=== PATIENT | male | born 1960 | race Caucasian/White ===

== ENCOUNTER 2023-01-25 16:20 | Emergency (ER) | payer MEDICAID ==
[~2023-01-25] VITALS: Ht 172.7 cm; Wt 93.2 kg
[2023-01-25] MEDS ORDERED: ROSU10TA72 PO (16:33)
[2023-01-25] MEDS ORDERED: CHOL25TA4 PO (16:33)
[2023-01-25] MEDS ORDERED: ASPI-1450 PO (16:33)
[2023-01-25] MEDS ORDERED: IRBE150T51 PO (16:33)
[2023-01-25] MEDS ORDERED: AMLO-257 PO (16:33)
[2023-01-25] MEDS ORDERED: FERR325T23 PO (16:33)
[2023-01-25] MEDS ORDERED: ATEN-72 PO (16:33)
[2023-01-25 18:09] LABS: APPEARANCE,URINE HAZY (CLEAR); BILIRUBIN,URINE NEGATIVE (NEGATIVE); GLUCOSE, URINE (UA) NEGATIVE (NEGATIVE); KETONES,URINE NEGATIVE (NEGATIVE); LEUKOCYTE ESTERASE ,URINE SMALL (NEGATIVE); NITRATE,URINE NEGATIVE (NEGATIVE); OCCULT BLOOD,URINE NEGATIVE (NEGATIVE); PH,URINE 5.5 (5.0-8.0); PROTEIN,URINE 30-70 mg/dL (NEGATIVE); SPECIFIC GRAVITIY, URINE 1.034 (1.003-1.030)
[2023-01-25 18:16] LABS: HEMATOCRIT 38.6 % (41-53); HEMOGLOBIN 13.1 g/dL (13.5-17.5); MEAN CORPUSCULAR VOLUME 94 fL (80-100); PLATELET COUNT (AUTO) 102 K/uL (150-450); RED CELL DISTRIBUTION WIDTH 14.2 % (11.5-14.5)
[2023-01-25 18:20] LABS: BACTERIA,URINE None Seen /HPF (None Seen); CALCIUM OXALATE CRYSTALS,UR Many /LPF (None Seen); RBC,URINE None Seen /HPF (0-2); SQUAMOUS EPITHELIAL CELL,UR Few /LPF (None Seen)
[2023-01-25 18:29] LABS: ANION GAP 4 mmol/L (8-16); CALCIUM, TOTAL 8.9 mg/dL (8.8-10.5); CARBON DIOXIDE 32 mmol/L (22-29); CHLORIDE 103 mmol/L (98-107); CREATININE 0.87 mg/dL (0.60-1.30); GLOMERULAR FILTR. RATE CALC > 60 mL/min (>60); GLUCOSE,RANDOM 93 mg/dL (70-110); POTASSIUM 4.2 mmol/L (3.5-5.1); SODIUM SERUM 139 mmol/L (136-145)
[2023-01-25 18:33] LABS: BAND NEUTROPHILS % (MANUAL) 8 % (0-5); EOSINOPHILS % (MANUAL) 1 % (1-6); LYMPHOCYTES % (MANUAL) 6 % (22-44); SEGMENTED NEUTROPHILS % 85 % (40-70)
[2023-01-25 18:35] LABS: ALANINE AMINOTRANSFERASE 17 U/L (12-78); ALBUMIN 3.7 g/dL (3.4-5.0); ALKALINE PHOSPHATASE 61 U/L (46-116); ASPARTATE AMINOTRANSFERASE 19 U/L (15-37); BILIRUBIN,TOTAL 0.6 mg/dL (0.1-1.0); LIPASE 155 U/L (73-393)
[2023-01-25 18:37] LABS: LACTIC ACID 0.8 mmol/L (0.4-2.0)
[2023-01-25] MEDS ORDERED: LIDOCAINE 5% TRANSDERMAL PATCH TD ONE (19:45)
[2023-01-25 20:00] VITALS: BP 110/71
== END 2023-01-25 20:58 | disposition still patient (30) ==
LOC: EMS 16:32
DX: M79.621 Pain in right upper arm (principal); E78.00 Pure hypercholesterolemia, unspecified; I10 Essential (primary) hypertension
CPT/HCPCS: 71045; 80053; 81001; 83605; 83690; 83880; 84484; 85025; 93005; 99285; 36415-L1; 36415-TC

== ENCOUNTER 2024-09-29 08:14 | Emergency (ER) | payer MEDICARE, MEDICAID ==
[~2024-09-29] VITALS: Ht 172.7 cm; Wt 101.0 kg
[~2024-09-29 08:14] MED LIST: AMLO-257 PO; ASPI-1450 PO; ATEN-72 PO; CEPH-558 PO; CHOL25TA4 PO; CLOP75TA32 PO; FERR325T23 PO; FURO40TA5 PO; IRBE150T51 PO; ROSU10TA72 PO; TAMS0.4C94 PO
[2024-09-29 08:45] VITALS: TEMP 98.5
[2024-09-29] MEDS: LIDOCAINE 1% 10 ML VIAL SQ ONE (09:34)
[2024-09-29] MEDS ORDERED: DOXY-354 PO (09:58)
[2024-09-29] MEDS ORDERED: IBUP-1554 PO (09:58)
[2024-09-29] MEDS ORDERED: CEPH-558 PO (09:58)
[2024-09-29 10:17] VITALS: BP 115/72; PULSE 68; RESP 18; O2SAT 99
== END 2024-09-29 10:19 | disposition home or self-care (01) ==
LOC: EMS 08:15
DX: L02.32 Furuncle of buttock (principal); E78.00 Pure hypercholesterolemia, unspecified; I10 Essential (primary) hypertension; Z79.02 Long term (current) use of antithrombotics/antiplatelets; Z79.82 Long term (current) use of aspirin; Z79.899 Other long term (current) drug therapy
CPT/HCPCS: 99284; 10160; J3490

== ENCOUNTER 2025-05-26 12:08 | Inpatient (IN) | payer MEDICARE, MEDICAID ==
[~2025-05-26] VITALS: Ht 172.7 cm; Wt 94.5 kg
[~2025-05-26 12:08] MED LIST changes: +DOXY-354 PO; +IBUP-1554 PO; -ROSU10TA72 PO; +ROSU10TA98 PO
[2025-05-26] MEDS ORDERED: ATOR10TA PO (12:32)
[2025-05-26] MEDS ORDERED: THIA50TA16 PO (12:32)
[2025-05-26 12:55] LABS: APPEARANCE,URINE HAZY (CLEAR); GLUCOSE, URINE (UA) NEGATIVE (NEGATIVE); LEUKOCYTE ESTERASE ,URINE TRACE (NEGATIVE); NITRATE,URINE NEGATIVE (NEGATIVE); OCCULT BLOOD,URINE NEGATIVE (NEGATIVE); SPECIFIC GRAVITIY, URINE 1.035 (1.003-1.030)
[2025-05-26 12:58] LABS: CALCIUM, TOTAL 8.3 mg/dL (8.8-10.5); CREATININE 0.87 mg/dL (0.60-1.30); GLOMERULAR FILTR. RATE CALC > 60 mL/min (>60); GLUCOSE,RANDOM 86 mg/dL (70-110); PLATELET COUNT (AUTO) 94 K/uL (150-450); RED BLOOD CELL COUNT(AUTO) 4.36 MIL/uL (4.50-5.90); RED CELL DISTRIBUTION WIDTH 14.3 % (11.5-14.5); SODIUM SERUM 142 mmol/L (136-145); UREA NITROGEN, BLOOD 17 mg/dL (7-18); WHITE BLOOD COUNT (AUTO) 5.5 K/uL (4.5-11.0)
[2025-05-26 13:04] LABS: ASPARTATE AMINOTRANSFERASE 23.0 U/L (15-37); TOTAL PROTEIN, SERUM 7.3 g/dL (6.4-8.2)
[2025-05-26 13:05] LABS: SULFOSALICYLIC ACID,URINE 2+ (Negative)
[2025-05-26 13:07] LABS: CALCIUM OXALATE CRYSTALS,UR Rare /LPF (None Seen); HYALINE CASTS, URINE 0-2 /LPF (None Seen)
[2025-05-26] MEDS: ONDANSETRON HCL 4 MG/2 ML VIAL IVP ONE (13:39)
[2025-05-26] MEDS: SODIUM CHLORIDE 0.9% 1,000 ML IV ONE (13:39)
[2025-05-26 14:26] LABS: COVID AG,FIA SOURCE NASAL SWAB
[2025-05-26 14:51] LABS: INFLUENZA TYPE A NEGATIVE FOR TYPE A (NEGATIVE); INFLUENZA TYPE B NEGATIVE FOR TYPE B (NEGATIVE); SARS-COV2 (COVID) ANTIGEN,FIA Negative (Negative)
[2025-05-26] MEDS ORDERED: OxyCODONE HCL/ACETAMINOPHEN 5-325 MG TABLET PO PRN (15:30)
[2025-05-26] MEDS ORDERED: ZOLPIDEM TARTRATE 5 MG TABLET PO PRN (15:30)
[2025-05-26] MEDS ORDERED: MORPHINE SULFATE 4 MG/ML SYRINGE IVP PRN (15:30)
[2025-05-26] MEDS ORDERED: ACETAMINOPHEN 325 MG TABLET PO PRN (15:30)
[2025-05-26] MEDS: SODIUM CHLORIDE 0.9% 1,000 ML IV SCH (16:32)
[2025-05-26 17:30] VITALS: BP 131/86; PULSE 65; RESP 18; TEMP 98; O2SAT 98
[2025-05-26 19:20] VITALS: BP 104/94; PULSE 79; RESP 18; TEMP 99.5; O2SAT 100
[2025-05-26] MEDS: DOCUSATE SODIUM 100 MG CAPSULE PO SCH (21:00)
[2025-05-26] MEDS: PANTOPRAZOLE SODIUM 40 MG/VIAL IVP SCH (21:29)
[2025-05-26 23:41] VITALS: BP 125/75; PULSE 82; RESP 17; TEMP 97.9; O2SAT 98
[2025-05-27 04:04] VITALS: BP 137/80; PULSE 79; RESP 18; TEMP 97.9; O2SAT 98
[2025-05-27 05:58] LABS: PLATELET COUNT (AUTO) 77 K/uL (150-450); RED BLOOD CELL COUNT(AUTO) 4.19 MIL/uL (4.50-5.90); RED CELL DISTRIBUTION WIDTH 14.7 % (11.5-14.5); WHITE BLOOD COUNT (AUTO) 3.3 K/uL (4.5-11.0)
[2025-05-27 06:20] LABS: CALCIUM, TOTAL 8.2 mg/dL (8.8-10.5); CREATININE 0.77 mg/dL (0.60-1.30); GLOMERULAR FILTR. RATE CALC > 60 mL/min (>60); GLUCOSE,RANDOM 84 mg/dL (70-110); SODIUM SERUM 144 mmol/L (136-145); UREA NITROGEN, BLOOD 12 mg/dL (7-18)
[2025-05-27 08:50] VITALS: BP 129/88; PULSE 79; RESP 18; TEMP 98.4; O2SAT 98
[2025-05-27 12:04] VITALS: BP 124/82; PULSE 76; RESP 18; TEMP 97.8; O2SAT 97
[2025-05-27] MEDS: TAMSULOSIN HCL 0.4 MG CAPSULE PO SCH (12:08)
[2025-05-27] MEDS: CefTRIAXone 1 GM/DEXTROSE 50 ML IV SCH (12:37)
[2025-05-27 16:13] VITALS: BP 143/84; PULSE 80; RESP 18; TEMP 98.1; O2SAT 97
[2025-05-27 20:01] VITALS: BP 99/65; PULSE 82; RESP 18; TEMP 98.4; O2SAT 98
[2025-05-27 23:55] VITALS: BP 136/94; PULSE 91; RESP 19; TEMP 98.2; O2SAT 97
[2025-05-28 04:11] VITALS: BP 120/90; PULSE 90; RESP 19; TEMP 98.2; O2SAT 95
[2025-05-28 09:19] VITALS: BP 126/85; PULSE 95; RESP 20; TEMP 98.2; O2SAT 98
[2025-05-28] MEDS: ASPIRIN 81 MG CHEWABLE TABLET PO SCH (09:39)
[2025-05-28] MEDS: ATORVASTATIN CALCIUM 20 MG TABLET PO SCH (09:39)
[2025-05-28] MEDS: ONDANSETRON HCL 4 MG/2 ML VIAL IVP PRN (10:16)
[2025-05-28 12:57] VITALS: BP 127/83; PULSE 73; RESP 19; TEMP 98.2; O2SAT 96
== END 2025-05-28 16:25 | disposition home or self-care (01) | DRG 439 ==
LOC: EMS 12:10 → EDH 15:26 → 5S 17:30
PROVIDERS: ADMIT Internal Medicine; ATTEND Internal Medicine
DX: K85.90 Acute pancreatitis without necrosis or infection, unspecified (principal); N39.0 Urinary tract infection, site not specified; I37.1 Nonrheumatic pulmonary valve insufficiency; E66.9 Obesity, unspecified; Z95.2 Presence of prosthetic heart valve; Z20.822 Contact with and (suspected) exposure to COVID-19; E78.00 Pure hypercholesterolemia, unspecified; I10 Essential (primary) hypertension; I25.10 Atherosclerotic heart disease of native coronary artery without angina pectoris; N40.0 Benign prostatic hyperplasia without lower urinary tract symptoms; Z95.5 Presence of coronary angioplasty implant and graft; Z68.31 Body mass index [BMI] 31.0-31.9, adult; Z79.82 Long term (current) use of aspirin; Z79.899 Other long term (current) drug therapy
CPT/HCPCS: 74176; 76705; 80048; 80076; 81001; 81002; 82271; 83690; 84153; 85025; 85610; 85730; 86850; 86900; 86901; 87086; 87804; 93005; 93306; 96361; 96374; 99285; G0378; J0696; J2405; J2470; J7030; 36415-L1; 36415-TC